=== PATIENT | male | born 2000 | race Caucasian/White ===

== ENCOUNTER → 2021-08-04 | Outpatient (CLI) | payer OTHER ==
--- NOTE | 2021-08-04 12:32 | 2DMMODE ---
[facility] [place] [address] 2 D/M-MODE ECHOCARDIOGRAM Name: SAUMYA MONTEZ Room #: REG NIKKI Zheng#: [id number] Admission: 08/04/21 Attend Phys: Deonte Cantu Discharge: Date of : [birth year] Report #: [id number] THIS REPORT FOR: cc: Miguel Haider MD, David P. MD Lundgren, Craig H. MD [facility] ~ APPROVED REPORT Study performed: 08/04/2021 11:25:49 EXAM: Comprehensive 2D, Doppler, and color-flow Echocardiogram Patient Location: Out-Patient Status: routine BSA: 1.86 HR: 66 bpm Rhythm: NSR Other Information Study Quality: Adequate Indications Cardiomyopathy 2D Dimensions IVSd: 5.31 (7-11mm) LVOT Diam: 19.73 (18-24mm) LVDd: 54.18 mm PWd: 8.03 (7-11mm) Ascending Ao: 26.79 (22-36mm) LVDs: 42.44 (25-40mm) Left Atrium: 25.24 (27-40mm) Aortic Root: 24.95 mm LV Single Plane 4CH: 49.87 % LV Single Plane 2CH: 56.67 % Volumes Left Atrial Volume (Systole) Single Plane 4CH: 22.08 mL Single Plane 2CH: 18.16 mL Biplane LA Volume: 25.00 mL LA ESV Index: 13.00 mL/m2 Aortic Valve AoV Peak Jacob.: 0.99 m/s AO Peak Gr.: 5.41 mmHg LVOT Max P.45 mmHg LVOT Max V: 0.78 m/s [facility] [address] [place] [address] 2 D/M-MODE ECHOCARDIOGRAM Name: SAUMYA MONTEZ Room #: REG CL [facility].#: [id number] Admission: 08/04/21 Attend Phys: Deonte Beltre Discharge: Date of : [birth year] Report #: [id number] Vmax: 2.40 cm2 Mitral Valve E/A Ratio: 1.6 MV Decel. Time: 102.97 ms MV E Max Jacob.: 0.61 m/s MV A Jacob.: 0.37 m/s MV PHT: 29.86 ms Pulmonary Valve PV Peak Jacob.: 0.79 m/s PV Peak Gr.: 2.51 mmHg MA End Vmax: 1.11 m/s Pulmonary Vein P Vein S: 0.34 m/s P Vein A: 0.18 m/s P Vein D: 0.47 m/s P Vein A Dur.: 55.4 msec P Vein S/D Ratio: 0.72 Tricuspid Valve TR Peak Jacob.: 1.47 m/s RAP Estimate: 7.00 mmHg TR Peak Gr.: 8.59 mmHg RVSP: 15.00 mmHg Left Ventricle Left ventricle is at the upper limits of normal. There is normal LV segmental wall motion. There is normal left ventricular wall thickness. Left ventricular systolic function is normal. The left ventricular ejection fraction is within the normal range. LVEF 55%. The left ventricular diastolic function is normal. Right Ventricle The right ventricle is normal size. The right ventricular systolic function is normal. Atria The left atrium size is normal. The right atrium size is normal. Aortic Valve Aortic valve is trileaflet. No aortic regurgitation is present. There is no aortic valvular stenosis. Mitral Valve The mitral valve is normal in structure. There is no mitral valve regurgitation noted. No evidence of mitral valve stenosis. Tricuspid Valve [facility] [address] [address] 2 D/M-MODE ECHOCARDIOGRAM Name: SAUMYA MONTEZ Room #: REG CL [facility].#: [id number] Admission: 08/04/21 Attend Phys: Deonte Beltre Discharge: Date of : [birth year] Report #: [id number] The tricuspid valve is normal in structure. Trace tricuspid regurgitation. PAP 15 mmHg Pulmonic Valve The pulmonary valve is normal in structure. Trace to mild pulmonic regurgitation. Great Vessels The aortic root is normal in size. IVC is normal in size and collapses >50% with inspiration. Pericardium There is no pericardial effusion. <Conclusion> Left ventricular systolic function is normal. There is normal LV segmental wall motion. LVEF 55%. Normal diastolic function Aortic valve is trileaflet. No aortic regurgitation or stenosis The mitral valve is normal in structure. No mitral valve regurgitation. Pulmonary artery pressure of 15 mmHg There is no pericardial effusion. <ELECTRONICALLY SIGNED> By: Magdaleno Souza MD, FACC 08/04/21 1232 1232 1232 Magdaleno Souza MD, FACC /INF
== END ==
LOC: CV 07-30 14:35
PROVIDERS: ATTEND Chiropractor
DX: I08.8 Other rheumatic multiple valve diseases (principal); I25.9 Chronic ischemic heart disease, unspecified

== ENCOUNTER → 2021-09-11 | Outpatient (CLI) | payer OTHER ==
--- NOTE | 2021-09-11 12:27 | EKG ---
[place] [address] [facility] [place] [address] ELECTROCARDIOGRAM REPORT Name: SAUMYA MONTEZ Room #: REG NIKKI Zheng#: [id number] Admission: 09/11/21 Attend Phys: Deonte Cantu Discharge: Date of : [birth year] Report #: [id number] [facility] Test Date: 2021-09-11 Test Time: 10:19:24 Pat Name: SAUMYA MONTEZ Department: Room: Gender: Software Client Architect: SHAWNA : 2000 Requested By: Physician staff Order Number: [id number] MD: Leon Linton Measurements Intervals Ono Rate: 66 P: 14 IN: 118 QRS: 54 QRSD: 100 T: -1 QT: 413 QTc: 433 Interpretive Statements Sinus rhythm Borderline short IN interval Borderline T abnormalities, inferior leads No previous ECG available for comparison Electronically Signed On 09-11-2021 12:26:57 [employer] by Leon Linton [email or web address] <ELECTRONICALLY SIGNED> By: Leon Linton MD, [facility] 09/11/21 1226 1019 1019 Leon Linton MD, FACC /EPI
== END ==
LOC: CV 09:59
PROVIDERS: ATTEND Chiropractor
DX: I25.9 Chronic ischemic heart disease, unspecified (principal)